=== PATIENT | male | born 1995 | race Caucasian/White ===

== ENCOUNTER 2018-11-05 17:33 | Emergency (ER) | payer SELFPAY ==
[~2018-11-05] VITALS: Ht 162.6 cm; Wt 55.1 kg
[2018-11-05 17:55] VITALS: Ht 162.6 cm; Wt 55.1 kg
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
[2018-11-05] MEDS ORDERED: IBUP-1542 PO (18:56)
[2018-11-05 19:07] VITALS: BP 127/76; PULSE 78; RESP 18
== END 2018-11-05 19:09 | disposition home or self-care (01) ==
LOC: FTE 17:33
DX: S00.83XA Contusion of other part of head, initial encounter (principal); R40.2412 Glasgow coma scale score 13-15, at arrival to emergency department; F07.81 Postconcussional syndrome; G44.309 Post-traumatic headache, unspecified, not intractable; W18.39XA Other fall on same level, initial encounter; Y92.9 Unspecified place or not applicable
CPT/HCPCS: 99283